=== PATIENT | female | born 1965 ===

== ENCOUNTER 2018-01-26 12:19 | Emergency (ER) | payer BC, OTHER ==
[2018-01-26 12:59] VITALS: BP 135/100; PULSE 90; TEMP 98.4; BMI 31.9
--- NOTE | 2018-01-26 12:59 | PDOC ---
History of Present Illness - General Chief Complaint: Rash Stated Complaint: RASH Time Seen by Provider: 01/26/18 12:25 History Source: Patient Exam Limitations: No Limitations - History of Present Illness Initial Comments: 01/26/18 13:03 Ms Donovan is a 52 yo F who presents to the ER for evaluation of diffuse rash Patient states she's had these symptoms were possibly 2 days No associated fevers or chills. No tongue swelling. No difficulty breathing, difficulty swallowing. Patient has noted no skin sloughing. No recent antibiotic use. Her only medication is from [place] she's been on for the past 3 months. She contacted her primary care physician who requested that she go into the ER to be checked out. Patient denies changes in detergent, soap, lotion. Past Medical History: Psoriasis Past surgical history: Denies Medication: Humira ALLERGIES: No known food or drug ALLERGIES GENERAL/CONSTITUTIONAL: No: fever, chills, weakness, loss of appetite. HEAD, EYES, EARS, NOSE AND THROAT: No: change in vision, ear pain, discharge, sore throat, throat swelling. CARDIOVASCULAR: No: chest pain, lightheadedness, palpitations, syncope RESPIRATORY: No: cough, shortness of breath, wheezing, hemoptysis, stridor. GASTROINTESTINAL: No: nausea, vomiting, diarrhea, abdominal cramping, rectal bleeding, constipation. GENITOURINARY: No: dysuria, hematuria, frequency, urgency, flank pain. MUSCULOSKELETAL: No: back pain, neck pain, joint pain, muscle swelling or pain SKIN: Yes: diffuse rash No: pallor, easy bruising. NEUROLOGIC: No: headache, vertigo, paresthesias, weakness ENDOCRINE: No: unexplained weight gain or loss HEMATOLOGIC/LYMPHATIC: No: anemia, easy bleeding, swelling nodes. GENERAL: The patient is in no acute distress. HEAD: Normal EYES: PERRLA, EOMI, sclera anicteric, conjunctiva clear. ENT: Ears normal, nares patent, oropharynx clear without exudates. Moist mucous membranes. NECK: Normal range of motion, supple without lymphadenopathy, JVD, or masses. LUNGS: Breath sounds equal, clear to auscultation bilaterally. No wheezes, and no crackles. HEART:Regular rate and rhythm, normal S1 and S2 without murmur, rub or gallop. ABDOMEN: Soft, nontender, normoactive bowel sounds. No guarding, no rebound. No masses palpable. EXTREMITIES: Normal range of motion, no edema. No clubbing or cyanosis. No erythema, or tenderness. NEUROLOGICAL: Cranial nerves II through XII grossly intact. Normal speech. No focal neurological deficits. MUSCULOSKELETAL: Back non-tender to palpation, no CVA tenderness SKIN: Diffuse erythematous macular lesions on all extremities, abdomen, thighs No oral lesions No warmth No urticaria Past History - Past Medical History Allergies/Adverse Reactions: Allergies Allergy/AdvReac Type Severity Reaction Status Date / Time No Known Allergies Allergy Verified 01/26/18 12:20 Home Medications: Ambulatory Orders Adalimumab [Humira] 40 mg SQ ASDIR 01/26/18 Diphenhydramine HCl [Benadryl -] 25 mg PO Q8H #21 capsule 01/26/18 Methylprednisolone [Medrol Dose Elmo] 4 mg PO ASDIR #21 tablet 01/26/18 Medical Decision Making - Medical Decision Making 01/26/18 13:10 Ms Donovan is a 52 yo F presenting to the ER with a complaint of rash Unclear if this is related to the [place]??? Pt will be given benadry and medrol dose pack Pt asked to follow up with PMD and Word Processing Machine Operator Clinical impression: rash, initial presentation *DC/Admit/Observation/Transfer Diagnosis at time of Disposition: Rash and nonspecific skin eruption - Discharge Dispostion Disposition: HOME Condition at time of disposition: Stable Decision to Admit order: No - Referrals Referrals: Becki Page MD [Staff Physician] - Yoselyn Schrader [Staff Physician] - - Patient Instructions Printed Discharge Instructions: DI for Rash Additional Instructions: Ms Donovan Thanks for choosing [facility] today Please be sure to follow up with the Word Processing Machine Operator It is not clear to me that this is a reaction to your Humira, but it possibly is. Please monitor for progression of your symptoms Please monitor for any skin peeling Please monitor yourself for fevers If you notice worsening of your symptoms or any new symptoms, do return to the ER for re evaluation - Post Discharge Activity
== END 2018-01-26 13:31 | disposition home or self-care (01) ==
LOC: FER 12:19
DX: R21 Rash and other nonspecific skin eruption (principal)
CPT/HCPCS: 99281-25